=== PATIENT | female | born 1985 | race Hispanic/Latino ===

== ENCOUNTER → 2017-03-15 | Outpatient (CLI) | payer OTHER ==
--- NOTE | 2017-03-15 09:10 | Diagnostic Imaging Report ---
PROCEDURE:LIVER ULTRASOUND COMPARISON:None. INDICATIONS:Elevated Enzymes FINDINGS: Liver: 12.1 cm. Increased hepatic parenchymal echogenicity. No focal mass. Main portal vein: 1.2 cm. Hepatopedal flow. Gallbladder: No echogenic calculi, gallbladder wall thickening, or pericholecystic fluid. Common Bile Duct: 2.0 mm. No echogenic filling defect. Sonographic Montgomery's sign: Negative. Right kidney: 10.5 cm. No solid or cystic mass, echogenic calculi, or hydronephrosis. Normal parenchymal echogenicity. Pancreas: The visualized portions of the pancreas are normal. Inferior vena cava: Normal. Aorta: Normal. Ascites: None. CONCLUSION: 1. No acute sonographic abnormality. 2. Hepatic steatosis. Dictated by: Pardeep Armstrong M.D. on 03/15/2017 at 9:19 Electronically approved by: Pardeep Armstrong M.D. on 03/15/2017 at 9:19
== END ==
LOC: US 07:47
PROVIDERS: ATTEND Internal Medicine Gastroenterology
DX: R74.8 Abnormal levels of other serum enzymes (principal)
CPT/HCPCS: 76705

== ENCOUNTER → 2017-09-20 | Outpatient (CLI) | payer OTHER ==
[~2017-09-20] MED LIST: GADOBENATE DIMEGLUMINE 1 ML IV ONE
--- NOTE | 2017-09-20 19:36 | Diagnostic Imaging Report ---
PROCEDURE: MRI ABDOMEN WOW TECHNIQUE: Axial T1 in and out of phase, axial T2, fat-sat, coronal, T2 with and without fat-sat, axial ASSETT, axial DWI, and ADC MR images of the abdomen were performed before the intravenous administration of ptosis of gadolinium. Axial T1, GRE dynamic images in precontrast, arterial, venous and delayed phases were obtained, as well as delayed postcontrast axial ASSETT and subtraction images. COMPARISON: Patients [facility], US, US LIVER, 03/15/2017, 8:11. INDICATIONS: Abdominal pain, elevated alpha-fetoprotein. FINDINGS: LOWER THORAX: Lung bases are clear. LIVER: Normal hepatic size and contour. Signal dropout of the hepatic parenchyma on out of phase images consistent with steatosis. No suspicious enhancing hepatic lesions. BILIARY: No intra-or extrahepatic biliary ductal dilation. The common bile duct is normal in caliber, measuring approximately 4 mm at the zeb hepatis and 3 mm At the pancreatic head. No intraluminal filling defects. Gallbladder is unremarkable, without filling defects, wall thickening, or pericholecystic fluid. PANCREAS: No mass or ductal dilatation. SPLEEN: No splenomegaly. ADRENALS: No nodules. KIDNEYS: No hydronephrosis or solid, enhancing mass in the imaged portion of the kidneys. 0.5 cm T2 hyperintense, T1 hypointense, nonenhancing lesion in the anterior mid to inferior right kidney (series 6, image 29 and series 10, image 76), consistent with a simple cyst. GI TRACT: Visualized bowel shows no dilation or obstruction. PERITONEUM / RETROPERITONEUM: No upper abdominal free fluid. LYMPH NODES: No upper abdominal lymphadenopathy. VESSELS: Celiac trunk, superior and inferior mesenteric and bilateral renal arteries are patent. Portal, superior mesenteric, and splenic veins are patent.. BONES AND SOFT TISSUES: No abnormal bone marrow signal. Soft tissues are unremarkable. IMPRESSION: 1. Diffuse hepatic steatosis. Normal hepatic size and contour, without MR evidence of cirrhosis. No suspicious enhancing hepatic lesions. 2. Otherwise, unremarkable exam. Nick Hurd M.D. Dictated by: Nick Hurd M.D. on 09/20/2017 at 19:40 Electronically approved by: Nick Hurd M.D. on 09/20/2017 at 19:40
== END ==
LOC: MRI 16:01
PROVIDERS: ATTEND Internal Medicine Gastroenterology
DX: R77.2 Abnormality of alphafetoprotein (principal)
CPT/HCPCS: 74183